=== PATIENT | female | born 1960 | race Caucasian/White ===

== ENCOUNTER 2021-11-02 10:35 | Day surgery (SDC) | payer BC ==
[~2021-11-02 10:35] MED LIST: Lactated Ringers 1,000 ML IV SCH; Midazolam 1 MG/ML 2 ML SDV ONE; Propofol 200 MG/20 ML SDV ONE; Sodium Chloride 0.9% 10 ML Syringe FLUSH PRN
[2021-11-02] MEDS ORDERED: Sodium Chloride 0.9% 10 ML Syringe FLUSH PRN (10:45)
[2021-11-02] MEDS ORDERED: Lactated Ringers 1,000 ML IV SCH (10:45)
[2021-11-02] MEDS ORDERED: Midazolam 1 MG/ML 2 ML SDV ONE (12:08)
[2021-11-02] MEDS ORDERED: Propofol 200 MG/20 ML SDV ONE (12:08)
[2021-11-02 15:45] VITALS: BP 154/100; PULSE 63
== END 2021-11-02 13:10 | disposition home or self-care (01) ==
LOC: LL.SDS 10:35
PROVIDERS: ATTEND Surgery
DX: Z12.11 Encounter for screening for malignant neoplasm of colon (principal); K63.5 Polyp of colon; E66.9 Obesity, unspecified; I10 Essential (primary) hypertension; Z79.899 Other long term (current) drug therapy; Z87.891 Personal history of nicotine dependence; Z68.41 Body mass index [BMI] 40.0-44.9, adult
CPT/HCPCS: 00812; J2250; J2704; J7120

== ENCOUNTER 2023-08-29 20:32 | Emergency (ER) | payer BC ==
[2023-08-29 20:52] VITALS: PULSE 75
[2023-08-29] MEDS: cloNIDine 0.1 MG Tab PO ONE ×2 (21:23→21:27)
[2023-08-29 21:45] VITALS: BP 160/98
== END 2023-08-29 21:35 | disposition home or self-care (01) ==
LOC: LL.ED 20:32
DX: I10 Essential (primary) hypertension (principal); E66.9 Obesity, unspecified; Z79.899 Other long term (current) drug therapy; Z68.37 Body mass index [BMI] 37.0-37.9, adult
CPT/HCPCS: 99283; 99284; A9270-GY